=== PATIENT | female | born 1995 | race Caucasian/White ===

== ENCOUNTER 2018-12-06 13:57 | Emergency (ER) | payer SELFPAY ==
[~2018-12-06] VITALS: Ht 157.5 cm; Wt 63.6 kg
[2018-12-06 15:14] LABS: BILIRUBIN, URINE MANUAL OBSCURED (NEGATIVE); GLUCOSE, URINE (UA) MANUAL OBSCURED mg/dL (NEGATIVE); KETONE, URINE MANUAL OBSCURED mg/dL (NEGATIVE); UROBILINOGEN, URINE MANUAL OBSCURED mg/dl (NORMAL)
[2018-12-06 15:30] LABS: BACTERIA, URINE MOD AMOUNT; RBC, URINE 20-30 /hpf (0-3); SQUAMOUS EPITHELIAL CELL URINE LARGE AMOUNT /hpf (SMALL AMT)
[2018-12-06 15:35] LABS: URINE PREG TEST NEGATIVE (NEGATIVE)
[2018-12-06] MEDS ORDERED: MACR100C43 PO (16:17)
[2018-12-06 16:27] VITALS: BP 119/64
== END 2018-12-06 16:42 | disposition home or self-care (01) ==
LOC: M ED 13:57
DX: N30.00 Acute cystitis without hematuria (principal)

== ENCOUNTER 2019-02-21 13:21 | Emergency (ER) | payer OTHER ==
[~2019-02-21] VITALS: Ht 154.9 cm; Wt 69.7 kg
[~2019-02-21 13:21] MED LIST: MACR100C43 PO
[2019-02-21] MEDS ORDERED: ACETAMINOPHEN TAB 650MG DOSE (2X325MG) PO ONE (15:30)
[2019-02-21 15:56] LABS: HEMATOCRIT 37.2 % (36.0-47.0); MEAN CORPUSCULAR HEMOGLOBIN 27.1 pg (27.0-33.0); MEAN CORPUSCULAR HGB CONC 32.3 g/dl (32.0-36.5); PLATELET COUNT, AUTOMATED 199 10^3/uL (150-450); RED BLOOD COUNT 4.43 10^6/uL (4.00-5.40); WHITE BLOOD COUNT 8.8 10^3/uL (4.0-10.0)
[2019-02-21 17:14] VITALS: BP 125/72
--- NOTE | 2019-02-21 19:15 | REP ---
PELVIC ULTRASOUND: Real-time sonographic evaluation of the pelvis was performed utilizing transabdominal and endovaginal technique. The uterus measures 8.3 x 4.2 x 5.2 cm. Endometrium is thickened at 27 mm. There is no gestational sac in the endometrial canal. Right ovary measures 3.4 x 2.2 x 2.8 cm and left ovary 2.8 x 1.8 x 3.5 cm. A complex cystic structure in the left ovary measures 2 cm representing either a complex corpus luteum or hemorrhagic follicle. There is no torsion of either ovary, RI right ovary 0.62 and left ovary 0.58. There is no adnexal mass. There is mild free fluid. Findings may represent very early intrauterine , missed AB or ectopic . Suggest correlation with serial quantitative beta HCG values and followup ultrasound as necessary. Electronically Signed by Lalo Esquivel MD 02/23/2019 10:15 A
--- NOTE | 2019-02-21 19:19 | REP ---
LEFT BREAST ULTRASOUND: Real-time sonographic evaluation of the left breast was performed. Reportedly the patient has had a palpable abnormality for 6 months. This is in the region of 2 o'clock. There is dense fibroglandular tissue without a cystic or solid nodule. IMPRESSION: ACR 2 benign ultrasound left breast. No mass seen in the 2 o'clock region of the left breast. Only dense fibroglandular tissue is seen. Clinical correlation and followup is recommended. Electronically Signed by Lalo Esquivel MD 02/23/2019 10:16 A
--- NOTE | 2019-02-24 06:45 | ED PDOC ---
Post-Departure Follow-Up ft braden conley and ob faxed formal report of breast us for fu Dagoberto Brand MD February 24, 2019 06:45
== END 2019-02-21 17:17 | disposition home or self-care (01) ==
LOC: M ED 13:21
DX: O36.80X9 Pregnancy with inconclusive fetal viability, other fetus (principal); O34.81 Maternal care for other abnormalities of pelvic organs, first trimester; N83.202 Unspecified ovarian cyst, left side; O26.891 Other specified pregnancy related conditions, first trimester; D24.2 Benign neoplasm of left breast; Z3A.00 Weeks of gestation of pregnancy not specified

== ENCOUNTER → 2019-02-23 | Outpatient (CLI) | payer OTHER ==
[2019-02-23 13:48] LABS: HEMATOCRIT 37.3 % (36.0-47.0); MEAN CORPUSCULAR HEMOGLOBIN 26.9 pg (27.0-33.0); MEAN CORPUSCULAR HGB CONC 32.2 g/dl (32.0-36.5); MEAN CORPUSCULAR VOLUME 83.6 fl (80.0-96.0); PLATELET COUNT, AUTOMATED 215 10^3/uL (150-450); RED BLOOD COUNT 4.46 10^6/uL (4.00-5.40); WHITE BLOOD COUNT 8.7 10^3/uL (4.0-10.0)
[2019-02-23 14:18] LABS: PROGESTERONE 21.9 NG/ML
== END ==
LOC: M LAB 12:42
PROVIDERS: ATTEND Physician Assistant Medical
DX: O20.0 Threatened abortion (principal); Z3A.00 Weeks of gestation of pregnancy not specified

== ENCOUNTER 2019-03-18 14:01 | Emergency (ER) | payer OTHER ==
[~2019-03-18] VITALS: Ht 154.9 cm; Wt 71.0 kg
[2019-03-18 14:04] VITALS: BP 128/67
[2019-03-18] MEDS ORDERED: MULTTAB20 PO ×2 (14:07)
--- NOTE | 2019-03-18 15:07 | REP ---
FIRST TRIMESTER ULTRASOUND: Real-time sonographic evaluation of the gravid uterus is performed utilizing transabdominal technique. There is a single living intrauterine gestation, estimated gestational age 7 weeks 3 days based on a crown rump length of 12 mm. EDC 11/01/2019. heart rate 108 beats per minute. There is no subchorionic hemorrhage. Cystic structure of the left ovary probably represents a corpus luteum, complex, 2.6 cm in maximum diameter. There is on ovarian torsion. Electronically Signed by Lalo Esquivel MD 03/22/2019 10:04 A
== END 2019-03-18 16:01 | disposition home or self-care (01) ==
LOC: M ED 14:01
DX: O26.891 Other specified pregnancy related conditions, first trimester (principal); O34.81 Maternal care for other abnormalities of pelvic organs, first trimester; Z3A.01 Less than 8 weeks gestation of pregnancy; Z79.899 Other long term (current) drug therapy